=== PATIENT | male | born 1955 | race Caucasian/White ===

== ENCOUNTER 2020-11-08 18:47 | Observation (INO) ==
[2020-11-08] MEDS ORDERED: Naloxone 0.4 MG/ML INJ IVP PRN (21:14)
[2020-11-08] MEDS ORDERED: Ondansetron 4 MG/2 ML VIAL IVP PRN (21:14)
[2020-11-08] MEDS ORDERED: Acetaminophen 325 MG TABLET PO PRN (21:14)
[2020-11-08] MEDS ORDERED: Melatonin 3 MG TABLET PO PRN (21:14)
[2020-11-08] MEDS ORDERED: Perflutren Lipid Microsphere 1.3 ML in 0.9 % Sodium Chloride 8.7 ML IVP PRN (22:14)
[2020-11-08] MEDS ORDERED: *HR* Heparin 5,000 UNIT/ML VIAL IVP PRN (23:28)
[2020-11-08] MEDS ORDERED: Heparin 25,000UNIT/250ML 1/2NS 25,000 UNIT/250 ML IV.SOLN IVC SCH (23:30)
[2020-11-08] MEDS ORDERED: *HR* Labetalol 20 MG/4 ML SYRINGE IVP ONE (23:51)
[2020-11-09] MEDS ORDERED: Isovue-370 500 ML BOTTLE IVP ONE (03:23)
[2020-11-09 07:07] LABS: Basophils # 0.1 K/mcL (0.0-0.2); Basophils % 0.9 %; Eosinophils # 1.1 K/mcL (0.0-0.6); Eosinophils % 8.9 %; Hemoglobin 14.2 g/dL (12.9-16.9); Immature Granulocytes % 0.4 % (0-4); Immature Platelets 13.4 % (1.1-6.1); Lymphocytes # 2.1 K/mcL (0.6-4.6); Lymphocytes % 16.6 %; Mean Corpuscular Hemoglobin 26.3 pg (28.0-33.3); Mean Corpuscular Volume 79.6 fL (83.0-100.0); Mean Platelet Volume 12.5 fL (9.4-12.4); Monocytes # 1.1 K/mcL (0.0-1.3); Neutrophils # 8.2 K/mcL (1.6-8.9); Platelet Count 114 K/mcL (140-400); Red Cell Distribution Width 14.4 % (11.5-14.5); Segmented Neutrophils % 64.2 %; White Blood Count 12.7 K/mcL (4.3-11.1)
[2020-11-09 07:28] LABS: % Iron Saturation 26 % (20-55); Alanine Aminotransferase 14 Units/L (7-52); Albumin 4.1 g/dL (3.5-5.7); Albumin/Globulin Ratio 1.6 (1.1-2.2); Alkaline Phosphatase 60 Units/L (34-104); Aspartate Amino Transferase 14 Units/L (13-39); BUN/Creatinine Ratio 28 (6-26); Bilirubin,Total 0.5 mg/dL (0.3-1.0); Blood Urea Nitrogen 22 mg/dL (8-23); Calcium 8.6 mg/dL (8.6-10.3); Carbon Dioxide 27 mEq/L (23-29); Chloride 104 mEq/L (98-107); Globulin 2.6 g/dL (2.4-3.5); Glucose 130 mg/dL (70-105); Iron 92 mcg/dL (65-175); Osmolality,Calculated 293 (280-300); Potassium 3.9 mEq/L (3.5-5.1); Sodium 139 mEq/L (136-145); Total Protein 6.7 g/dL (6.4-8.9); Transferrin 251 mg/dL (203-362); eGFR For African Americans > 60 (> 60); eGFR For Non-African Americans > 60 (> 60)
[2020-11-09 07:45] LABS: Ferritin 192 ng/mL (20-250)
[2020-11-09] MEDS: *HR* Heparin 5,000 UNIT/ML VIAL IVP PRN ×2 (08:56→17:00)
[2020-11-09] MEDS ORDERED: Nitroglycerin 0.4 MG TAB.SUBL SL PRN (11:42)
[2020-11-09] MEDS ORDERED: lisinopriL 20 MG TABLET PO SCH (13:15)
[2020-11-09] MEDS: carvediloL 6.25 MG TABLET PO SCH (17:00)
[2020-11-09] MEDS ORDERED: hydroCHLOROthiazide 25 MG TABLET PO SCH (17:30)
[2020-11-09] MEDS ORDERED: amLODIPine 5 MG TABLET PO SCH (17:30)
[2020-11-10 05:52] LABS: Hematocrit 42.5 % (37.5-50.1); Hemoglobin 14.2 g/dL (12.9-16.9); Immature Platelets 12.5 % (1.1-6.1); Mean Corpuscular HGB Conc 33.4 g/dL (31.6-35.5); Mean Corpuscular Volume 80.8 fL (83.0-100.0); Mean Platelet Volume 13.2 fL (9.4-12.4); Red Blood Count 5.26 M/mcL (4.19-5.50); Red Cell Distribution Width 14.2 % (11.5-14.5); White Blood Count 12.8 K/mcL (4.3-11.1)
[2020-11-10 06:16] LABS: BUN/Creatinine Ratio 24 (6-26); Blood Urea Nitrogen 21 mg/dL (8-23); Carbon Dioxide 29 mEq/L (23-29); Chloride 103 mEq/L (98-107); Glucose 129 mg/dL (70-105); Osmolality,Calculated 291 (280-300); Potassium 3.8 mEq/L (3.5-5.1); Sodium 138 mEq/L (136-145); eGFR For African Americans > 60 (> 60); eGFR For Non-African Americans > 60 (> 60)
[2020-11-10] MEDS: carvediloL 6.25 MG TABLET PO SCH (08:31)
[2020-11-10] MEDS ORDERED: hydroCHLOROthiazide 25 MG TABLET PO SCH (09:00)
[2020-11-10] MEDS ORDERED: lisinopriL 20 MG TABLET PO SCH (09:00)
[2020-11-10] MEDS ORDERED: Loratadine 10 MG TABLET PO SCH (09:00)
[2020-11-10 10:13] VITALS: O2SAT 96
[2020-11-10 14:57] VITALS: BP 187/95; PULSE 60; TEMP 98
== END 2020-11-10 15:56 | disposition home or self-care (01) ==
LOC: 3ANU → SUATTDRO 20:39
PROVIDERS: ADMIT Internal Medicine; ATTEND Internal Medicine